=== PATIENT | male | born 1985 | race Caucasian/White ===

== ENCOUNTER → 2022-06-02 09:57 | Outpatient (CLI) | payer OTHER, SELFPAY ==
--- NOTE | ~2022-06-02 | CT_ITS ---
EXAMINATION: CT sinus wo con DATE: 06/02/2022 10:17 INDICATION: Postnasal drip. Chronic sinusitis. TECHNIQUE: Computed tomography (CT) of the paranasal sinuses was performed without intravenous contra st. The dose-length product was 286.20 mGy-cm. Automated exposure control and iterative reconstructio n technique were employed. COMPARISON: CT dated 06/20/2009 FINDINGS: There is mucosal thickening of the left frontal, ethmoid and maxillary sinuses. Mastoids ar e pneumatized. Small right mastoid effusion. Left ostiomeatal unit is occluded by soft tissue. Right ostiomeatal unit is patent. Leftward nasal septal deviation. IMPRESSION: 1. Moderate sinusitis, most advanced in the left frontal, ethmoid and maxillary sinuses. Reviewed, dictated and finalized at location B. OR [employer]
== END ==
PROVIDERS: PCP Otolaryngology; Visit Provider Otolaryngology
DX: R09.82 Postnasal drip (principal); J32.9 Chronic sinusitis, unspecified; R44.8 Other symptoms and signs involving general sensations and perceptions
CPT/HCPCS: 70486

== ENCOUNTER 2022-07-09 01:14 | Day surgery (SDC) | payer OTHER, SELFPAY ==
[2022-06-23 16:24] VITALS: BMI 25.8
--- NOTE | 2022-06-23 16:43 | PC.NURSE ---
Report to the Outpatient Waiting Room, entrance under the green pavilion located off [facility], at 1130 on 07-09-22. Planned Procedure Time: 1330. Time changes happen often and if your time is changed the preop area will call you the afternoon before. - You and your visitor will be asked to self-screen and do not enter if you have any COVID symptoms. - Only one visitor is requested with a max of two and NO children visitors (Under age 16) are allowed at this time. - The patient visitor may be requested to leave or wait in car when not with patient due to distancing restrictions. - A mask is required within the hospital at this time. Patients may have clear liquids (water, carbonated beverages, clear teas, apple juice) until 3 hours prior to surgery with a maximum of 20 ounces. 1030 - No food from midnight until time of surgery - Infants may have breast milk until 4 hours before surgery, infant formula 6 hours prior to surgery. - Children will be allowed to drink immediately following surgery. If applicable, please bring a bottle or sippy cup to assist with drinking. Juice, water, soda, and popsicles are readily available. For infants on formula, please bring formula the day of surgery. Pacifiers are allowed. Take the following medications with a SIP of water the morning of surgery: None Medications to discontinue per physician: N/A Please no make-up, nail greek, hairspray, perfume, deodorant, or body powder the day of surgery. No jewelry (including any body piercings) or valuables the day of surgery, leave them at home. Please take a shower or bath the night before, or the morning of, surgery with an antibacterial soap. Wear comfortable, loose fitting clothing. Children are encouraged to wear pajamas. - Jewelry must be removed prior to entering the operating room. Rings and piercings that are not removed may be cut off. - The hospital will not accept responsibility for valuables. - Please leave all valuables, including medications, at home the day of surgery. If you are going home after surgery, a licensed stock driver must drive you home. - NO public transportation without another adult if you receive anesthesia. - We recommend that an adult stay with you for 24 hours following discharge. - We also recommend that you do not drive, make important decision, drink alcoholic beverages, or take any drugs that were not prescribed by your health care provider for at least 24 hours after your discharge time. For Pediatric surgeries, we recommend two adults accompany the child home. Follow any additional instructions given to you from your surgeon. If you or anyone in your household have experienced Covid symptoms in the past week, please notify your surgeon or the nurse liaison at the phone number below for possible testing. Telephone instructions given to Dominic Campuzano and asked if any additional questions and then verbalized understanding. Patient advised to call surgeon office or pre surgery nurse liaison [phone] if any additional questions.
--- NOTE | 2022-07-08 17:38 | P.HP_ITS ---
H&P: HPI History of Present Illness Date/Time: 07/08/22 17:38 Chief Complaint: Acute on chronic sinusitis septal deviation Narrative: planned surgical procedure Review of Systems Review of Systems: All systems reviewed & are unremarkable except as noted in HPI and below [facility] Family History Family History Father Thyroid cancer Heart disease Grandparent Bone cancer Cerebrovascular accident Heart disease Social History Social History Smoking status: Never smoker Second hand tobacco smoke exposure: No Alcohol intake: current Alcohol use details: socially Substance use: never Substance use type: does not use Living arrangements: with family Spiritual care concerns: No Meds Home Medications and Allergies Home Medications Medication Instructions Recorded Confirmed Type buspirone 10 mg tablet 10 mg PO BID 04/15/22 06/23/22 History sildenafil 100 mg tablet 25 mg PO DAILY PRN Erectile 04/15/22 06/23/22 History Dysfunction fluticasone propionate 50 1 - 2 spray intranasal DAILY 06/23/22 06/23/22 History mcg/actuation nasal spray,suspension (Flonase Allergy Relief) doxycycline hyclate 100 mg capsule 100 mg PO DAILY #10 caps 07/05/22 Rx prednisone 5 mg tablet 5 mg PO DAILY #10 tabs 07/05/22 Rx Allergies Allergy/AdvReac Type Severity Reaction Status Date / Time acetaminophen [From Percocet] Allergy Mild itchy Verified 06/23/22 16:17 oxycodone [From Percocet] Allergy Mild itchy Verified 06/23/22 16:17 Exam Narrative: middle meatal edema septal deviated Assessment and Plan Assessment and plan (1) Hypertrophy of both inferior nasal turbinates: Code(s): J34.3 - Hypertrophy of nasal turbinates Status: Acute Assessment and Plan: ?Please schedule him for a possible septoplasty, bilateral image guided endoscopic maxillary antrostomies without tissue removal, bilateral anterior ethmoidectomies, left frontal sinusotomy without tissue removal risks were discussed including bleeding infection damage to surrounding structures need for further procedures CSF leak brain brain damage change in vision blindness septal perforation total operative time 2-3 hours (2) Nasal septal deviation: Code(s): J34.2 - Deviated nasal septum Status: Acute (3) Chronic sinusitis: Code(s): J32.9 - Chronic sinusitis, unspecified Status: Acute
[2022-07-09] VITALS (8 sets, daily range): BP systolic 126–142; BP diastolic 80–96; PULSE 65–88; RESP 12–16; TEMP 36.2–36.3; O2SAT 98–100
--- NOTE | 2022-07-09 07:15 | WPDHPUPDATE1 ---
History and Physical Update Update Date/Time: 07/09/22 07:15 History and Physical has been reviewed, including an updated exam of the patient. There are NO changes in the patient's condition. Risks, benefits, and alternatives have been discussed and questions answered. Patient agrees to proceed with procedure.
[2022-07-09] MEDS: LACTATED RINGERS 1,000 ML 30 ML IV CONT ×2 (10:40→15:29)
[2022-07-09] MEDS: ACETAMINOPHEN 500 MG TABLET 1000 MG PO (10:40)
--- NOTE | 2022-07-09 10:42 | P.PNAN_ITS ---
Anes - Initial Pre Proc Eval Procedure: Operation Date: 07/09/22 12:00 Proposed Procedures p Septoplasty - Jeffy Valdivia MD s Image Guided Bilateral Endoscopic Maxillary Antrostomy with Tissue Removal, Bilateral Anterior Ethmoidectomy, Left Frontal Sinusotomy - Jeffy Valdivia MD Date/Time: 07/09/22 10:42 Surgeon: Jeffy Valdivia MD Pre Op Diagnosis: chronic sinusitis Patient Data Age: 36 Gender: M Height: 1.78 m Weight: 80.95 kg Last Vital Signs Temp 36.2 C L 07/09/22 10:11 Pulse 70 07/09/22 10:11 Resp 16 07/09/22 10:11 BP 132/81 07/09/22 10:11 Pulse Ox 100 07/09/22 10:11 O2 Del Method Room Air 07/09/22 10:11 Allergies Allergy/AdvReac Type Severity Reaction Status Date / Time oxycodone [From Percocet] Allergy Mild itchy Verified 07/09/22 10:15 Home Medications Medication Instructions Recorded Confirmed Type buspirone 10 mg tablet 10 mg PO BID 04/15/22 07/09/22 History sildenafil 100 mg tablet 25 mg PO DAILY PRN Erectile 04/15/22 07/09/22 History Dysfunction fluticasone propionate 50 1 - 2 spray intranasal DAILY 06/23/22 07/09/22 History mcg/actuation nasal spray,suspension (Flonase Allergy Relief) doxycycline hyclate 100 mg capsule 100 mg PO DAILY #10 caps 07/05/22 07/09/22 Rx prednisone 5 mg tablet 5 mg PO DAILY #10 tabs 07/05/22 07/09/22 Rx Patient hx anesthesia problems: none and other (motion sickness) Family hx anesthesia problems: post op nausea/vomiting Results Review: All pre-operative results and documents have been reviewed as part of the pre-operative evaluation. [facility] Past Medical History Medical History Anxiety Family History Family History Father Thyroid cancer Heart disease Grandparent Bone cancer Cerebrovascular accident Heart disease Social History Social History Smoking status: Never smoker Second hand tobacco smoke exposure: No Alcohol intake: current Alcohol use details: socially Substance use: never Substance use type: does not use Living arrangements: with family Spiritual care concerns: No Anes - Eval Final PreProcedure Day of Procedure 07/09/22 10:42 Patient weight: normal Heart: regular rate and rhythm Lungs: clear to auscultation Airway: Mallampati scale class II Neurological: alert and oriented Last oral intake: >/= 8 hours ASA classification: II Emergent: no Anesthetic plan: proceed Anesthesia type and monitoring: general ETT and standard monitoring Results Review: All pre-operative results and documents have been reviewed as part of the pre- operative evaluation. Informed Consent: The patient's anesthetic plan and its attendant risks and benefits were discussed with the patient/family/POA. Questions were solicited and answers provided to the satisfaction of the patient/family/POA.
[2022-07-09] MEDS: SCOPOLAMINE 1.5 MG PATCH TRANSDERM (11:03)
[2022-07-09] MEDS: ceFAZolin 2 GM/D5W 50 ML 2 GM/50 ML BAG IVPB (12:29)
[2022-07-09] MEDS: OXYMETAZOLINE HCL 0.05% NAS 15 ML BTL (*BKC) 1 SPRAY NASAL (12:46)
[2022-07-09] MEDS: MUPIROCIN 2% OINT 22 GM TUBE 1 APPLIC XX (15:17)
--- NOTE | 2022-07-09 15:55 | W.PM.PROC2 ---
Procedure Note - Detailed Date of Procedure 07/09/22 Pre-op Diagnosis chronic sinusitis, Septal deviation Post-op Diagnosis Same Procedure Performed endoscopic assisted septoplasty bilateral guided maxillary antrostomies bilateral image guided anterior ethmoidectomy left image guided frontal sinusotomies middle turbinectomy Surgeon Jeffy Valdivia MD Anesthesia General Indications see above Findings middle turbinate was scarred over the lateral making access of the frontal sinus near possible middle turbinectomy performed for access. Septoplasty also largely obstructing frontal sinus outflow left septoplasty performed for access Description of Procedure patient identified consent verified. Patient brought operating room. Time-out. General anesthesia induced endotracheal tube secured. Patient prepped draped position 2nd time-out performed. Image guidance initiated for. Afrin-soaked pledgets placed in bilateral nasal passages allowed to sit for 5 minutes then removed. 0 degree endoscope utilized septum obstructive 10 cc injected bilateral nasal septum as well as anterior of bilateral nasal septum. [place] incision made left-sided left nasal septal flap elevated small tear inferiorly. Crossed over with osteotome right-sided nasal septal flap elevated small tear inferiorly as well. Deviated nasal septum removed the Moise Ross forceps Fox forceps and osteotome. Frontal access middle turbinate now excessive. Given that there was perforations which were small yet opposing the decision was made to place cartilage which had been soaked in sterile saline in between the perforations and quilted this in the anterior cart the anterior [place] incision was then closed with a 3 interrupted 5 0 fast gut sutures. 4-0 fast gut was utilized to perform a quilting. Left middle turbinate injected in the axilla. Removed stump was cauterized with Bovie suction electrocautery setting of 10. Maxillary antrostomies performed with double ball tip probe backbiter straight through cut micro debrider. All under image guidance. Anterior ethmoidectomies performed [place] microdebrider image guidance. All operated sinuses had disease tissue left side had very scant purulent some edematous tissue especially in the frontal. The frontal sinus was accessed and opened with frontal sinus instruments including Cobra Hosemann and image suctions. Scant mucoid purulence located hears well. NasoPore excuse me Nova pack was placed the bilateral middle meati. Patient tolerated the procedure well. Siegel splints were trimmed placed sutured anteriorly using a mattressed nylon suture. I performed all dictated portions procedure. Complications would be perforations which had cartilage placed between the in the nasal septum sutured with quilting stitch. Total blood loss about 100 cc. No other complications. Care the patient given Anesthesiology. Patient taken to PACU. Estimated Blood Loss 100 Drains No Packing Yes (Bo) Pathology None sent Condition Stable Disposition PACU
[2022-07-09] MEDS: fentaNYL CITRATE INJ (*CRX) 100 MCG/2 ML VIAL 25 MCG IV PUSH ×3 (15:57→16:22)
[2022-07-09] MEDS: traMADol HCL (*CRX) 50 MG TABLET 100 MG PO (17:06)
== END 2022-07-09 17:39 | disposition home or self-care (01) ==
PROVIDERS: Visit Provider Otolaryngology
PROC: (CPT 30520; principal; 2022-07-09 12:00)
PROC: (CPT 31256; 2022-07-09 12:00)
DX: J32.9 Chronic sinusitis, unspecified (principal); J34.2 Deviated nasal septum; J34.3 Hypertrophy of nasal turbinates; F41.9 Anxiety disorder, unspecified
CPT/HCPCS: 31256; 31254; 61782; 31276; 30999; 30520; A9270; J0330; J0690; J1100; J2250; J2405; J2704; J3010; J7120

== ENCOUNTER 2023-02-28 19:12 | Emergency (ER) | payer OTHER, SELFPAY ==
--- NOTE | ~2023-02-28 | XR_ITS ---
EXAMINATION: XR chest 2V DATE: 02/28/2023 19:55 INDICATION: Palpitations with nausea TECHNIQUE: PA and lateral views of the chest were obtained. COMPARISON: Chest radiograph dated 12/12/2008 FINDINGS: The lungs remain clear with no focal airspace opacities, pulmonary edema, pleural effusion or pneumot horax. The cardiomediastinal silhouette is normal. Small linear metallic density projecting over the left humeral neck. Visualized bones and soft tissues are otherwise unremarkable. IMPRESSION: 1. No acute cardiopulmonary disease. Reviewed, dictated and finalized at location A.
--- NOTE | 2023-02-28 19:14 | ECG_ITS ---
Measurements Intervals [place] Rate: 60 P: 62 TX: 156 QRS: 45 QRSD: 92 T: 41 QT: 415 QTc: 415 Interpretive Statements SINUS RHYTHM NO PREVIOUS ECG AVAILABLE FOR COMPARISON Electronically Signed On 03-01-2023 11:18:14 CDT by Lambert Gonsalez M.D.
[2023-02-28 19:31] LABS: Basophils Absolute Auto 0.1 K/mm3 (0.0-0.1); Basophils Percent Auto 0.7 % (0.2-1.2); Eosinophils Absolute Auto 0.2 K/mm3 (0-0.3); Eosinophils Percent Auto 2.8 % (0-4.4); Hemoglobin 15.5 g/dL (14.0-18.0); Immature Granulocyte Absolute 0.02 K/mm3 (0.00-0.031); Immature Granulocyte Percent A 0.2 % (0-0.5); Lymphocytes Absolute Auto 3.19 K/mm3 (0.9-3.2); Lymphocytes Percent Auto 38.6 % (18.3-44.2); Mean Corpuscular HGB Conc 34.4 g/dl (32-36); Mean Corpuscular Hemoglobin 30.5 pg (26-34); Mean Corpuscular Volume 88.6 fl (80-100); Mean Platelet Volume 10.7 fl (7.4-10.4); Monocytes Absolute Auto 0.7 K/mm3 (0.1-0.6); Monocytes Percent Auto 8.5 % (2.6-8.5); Neutrophils Absolute Auto 4.1 K/mm3 (1.3-6.7); Neutrophils Percent Auto 49.2 % (45.5-73.1); Platelet Count Result 317 k/mm3 (150-375); Red Blood Count 5.08 M/mm3 (4.6-6.20); Red Cell Distribution Width 12.9 % (11.5-14.5); White Blood Count 8.3 K/mm3 (4.5-10.0)
[2023-02-28 19:38] VITALS: PULSE 60
[2023-02-28 19:40] VITALS: BP 129/87; PULSE 61; RESP 18; TEMP 36.8; O2SAT 99
[2023-02-28 19:42] LABS: Alanine Aminotransferase 27 U/L (6-50); Albumin Level 4.9 g/dL (3.5-5.1); Alkaline Phosphatase 62 U/L (38-126); Anion Gap 9 mmol/L (8-16); Aspartate Amino Transferase 30 U/L (17-59); Bilirubin,Total 0.8 mg/dL (0.2-1.3); Blood Urea Nitrogen 18 mg/dL (9-20); Calcium 9.2 mg/dL (8.4-10.2); Carbon Dioxide 27 mmol/L (22-30); Chloride 101 mmol/L (98-107); Estimated Glomerular Filt Rate > 60; Glucose 100 mg/dL (65-110); Lipase 98 U/L (23-300); Potassium 3.5 mmol/L (3.4-5.0); Sodium 137 mmol/L (137-145)
[2023-02-28 19:43] LABS: Prothrombin Time 13.5 Seconds (11.1-14.7)
[2023-02-28 19:44] LABS: Partial Thromboplastin Time 29.3 SECONDS (22.3-36.8)
[2023-02-28] MEDS: ASPIRIN 81 MG CHEWABLE TABLET 324 MG PO (19:47)
[2023-02-28 19:54] LABS: Troponin I < 0.012 ng/mL (0.000-0.034)
[2023-02-28 20:50] LABS: Magnesium 2.1 mg/dL (1.6-2.3); Phosphorus 3.6 mg/dL (2.5-4.5)
[2023-02-28 21:06] VITALS: BP 130/83; PULSE 60; RESP 16; O2SAT 99
[2023-02-28 21:07] LABS: Appearance Urine Clear (Clear); Bilirubin Urine Negative (Negative); Blood Urine Negative (Negative); Color Urine Yellow (Yellow); Glucose Urine UA Negative (Negative); Ketones Urine Negative (Negative); Leukocyte Esterase Ur Negative LEU/UL (Negative); Nitrate Urine Negative (Negative); Protein Urine Negative (Negative); Specific Grav Ur 1.003 (1.001-1.035); Urobilinogen Urine 0.2 mg/dL (<2.0)
[2023-02-28 21:15] LABS: Add Urine Microscopic? NO
[2023-02-28] MEDS: SODIUM CHLORIDE 0.9% IV 2,000 ML 999 ML IV CONT (21:16)
--- NOTE | 2023-02-28 23:29 | ED.GENADULT ---
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 Earlier today the patient started experience palpitations that are associated with chest heaviness and nausea. He has had this occurred earlier in the year and went in outpatient cardiac workup that involve stress test and Holter monitor. At time he was found have frequent PACs. Patient can feel his PACSwhen they occur. Patient denies fever chills nausea vomiting diarrhea chest pain shortness of breath abdominal pain or any other complaints. Patient is currently training for an 23pressathlon. He notes that he has not gotten much sleep lately. Related Data Home Medications Medication Instructions Recorded Confirmed buspirone 10 mg tablet 10 mg PO BID 04/15/22 08/06/22 sildenafil 100 mg tablet 25 mg PO DAILY PRN Erectile 04/15/22 08/06/22 Dysfunction fluticasone propionate 50 1 - 2 spray intranasal DAILY 06/23/22 08/06/22 mcg/actuation nasal spray,suspension (Flonase Allergy Relief) Allergies Allergy/AdvReac Type Severity Reaction Status Date / Time oxycodone [From Percocet] Allergy Mild itchy Verified 02/28/23 19:52 [facility] Past Medical History Medical History Anxiety Family History Family History Father Thyroid cancer Heart disease Grandparent Bone cancer Cerebrovascular accident Heart disease Social History Social History Smoking status: Never smoker Second hand tobacco smoke exposure: No Alcohol intake: current Alcohol use details: socially Substance use: never Substance use type: does not use Lack of Transportation: No Lack of Food: Never True Current Housing: I Have Housing Concerned About Future Housing: No Difficulty Paying Gas/Electric Bills: No Difficulty Paying for Meds: No Currently Unemployed: No Education: Associate Degree Difficulty w/ Childcare or Family Care: No Living arrangements: with family Spiritual care concerns: No Exam Narrative: APPEARANCE: No apparent distress. Head: atraumatic. EYES: EOMI, NOSE: Atraumatic NECK: Trachea midline RESPIRATORY: No increased rate of breathing , clear to auscultation CARDIOVASCULAR: RRR, no peripheral edema ABDOMINAL: Non-distended MUSCULOSKELETAl: No obvious deformities NEURO: Alert. Moving 4/4 extremities SKIN:: Warm, dry. Normal color PSYCHIATRIC: Normal affect Course Vital Signs Vital signs: Vital Signs Pulse Rate 60 02/28/23 19:38 Temperature 98.2 F 02/28/23 19:40 Pulse Rate 60 02/28/23 21:06 Respiratory Rate 16 02/28/23 21:06 Blood Pressure 130/83 02/28/23 21:06 Pulse Oximetry 99 02/28/23 21:06 Oxygen Delivery Room Air 02/28/23 19:40 Medical Decision Making MDM Narrative Medical decision making narrative: -Presentation: 37-year-old male presenting with palpitations that are associated with PACs. Patient's workup here was unremarkable. 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 Discharged with return precautions. -DDX includes but is not limited to: PACs, dysrhythmia, anxiety -Co-morbidities complicating care: history of PACs, anxiety -Social determinants of health: paramedics -Independent interpretation of studies: laboratory studies within acceptable limits. Chest x-ray unremarkable. Independent EKG interpretation: Rhythm [sinus], Rate [60], Brant -[normal], WA -[normal], QRS [narrow], QTC [normal], T waves -[negative for concerning inversions], ST Segments - [Negative for concerning elevations] Final interpretations: [Normal Sinus Rhythm] -Interventions: 2 L normal saline -Shared decision phil
[2023-02-28 23:46] VITALS: BP 138/60; PULSE 58; RESP 15; O2SAT 100
[2023-03-01] LABS: Troponin I < 0.012 ng/mL (0.000-0.034)
== END 2023-02-28 23:47 | disposition home or self-care (01) ==
PROVIDERS: Emergency Provider Emergency Medicine
DX: I49.1 Atrial premature depolarization (principal); F41.9 Anxiety disorder, unspecified
CPT/HCPCS: 36415; 71046; 80053; 81003; 83690; 83735; 84100; 84484; 85025; 85610; 85730; 93005; 96360; 99284; A9270; J7030

== ENCOUNTER 2023-11-25 09:23 | Outpatient (CLI) | payer BC, SELFPAY ==
[2023-11-25 18:49] LABS: Hematocrit 45.4 % (42.0-52.0); Hemoglobin 15.3 g/dL (14.0-18.0); Mean Corpuscular HGB Conc 33.7 g/dl (32-36); Mean Corpuscular Hemoglobin 30.1 pg (26-34); Mean Corpuscular Volume 89.2 fl (80-100); Mean Platelet Volume 11.2 fl (7.4-10.4); Platelet Count Result 348 k/mm3 (150-375); Red Blood Count 5.09 M/mm3 (4.6-6.20); Red Cell Distribution Width 12.3 % (11.5-14.5); White Blood Count 8.4 K/mm3 (4.5-10.0)
[2023-11-25 19:38] LABS: Alanine Aminotransferase 19 U/L (6-50); Albumin Level 4.7 g/dL (3.5-5.1); Alkaline Phosphatase 64 U/L (38-126); Anion Gap 9 mmol/L (4-12); Aspartate Amino Transferase 38 U/L (17-59); Bilirubin,Total 0.9 mg/dL (0.2-1.3); Blood Urea Nitrogen 10 mg/dL (9-20); Calcium 9.5 mg/dL (8.4-10.2); Carbon Dioxide 26 mmol/L (22-30); Chloride 102 mmol/L (98-107); Cholesterol 161 mg/dL (0-200); Estimated Glomerular Filt Rate > 60; Glucose 84 mg/dL (65-110); HDL Direct 58 mg/dL; Potassium 3.8 mmol/L (3.4-5.0); Sodium 137 mmol/L (137-145); Triglycerides 47 mg/dL (<150)
[2023-11-25 19:49] LABS: LDL Cholesterol Direct 88 mg/dL
[2023-11-25 20:08] LABS: Thyroid Stimulating Hormone 0.986 uIU/mL (0.465-4.680)
[2023-11-25 20:43] LABS: Folic Acid 11.3 ng/mL (2.76->20)
[2023-11-29 10:29] LABS: Vitamin D 1,25 (OH)2 Total 40 pg/mL (18-72); Vitamin D2 1,25 (OH)2 <8 pg/mL; Vitamin D3 1,25 (OH)2 40 pg/mL
== END 2023-11-25 09:24 | disposition home or self-care (01) ==
LOC: ANHGOSHLAB 09:25
PROVIDERS: PCP Family Medicine; Visit Provider Family Medicine
DX: F41.9 Anxiety disorder, unspecified (principal); F32.A Depression, unspecified; E66.3 Overweight; Z76.89 Persons encountering health services in other specified circumstances; Z79.899 Other long term (current) drug therapy
CPT/HCPCS: 36415; 80053; 80061; 82607; 82652; 82746; 84443; 85027